=== PATIENT | male | born 1960 | race Caucasian/White ===

== ENCOUNTER → 2016-04-24 12:55 | Day surgery (SDC) | payer BC ==
[~2016-04-24 12:55] MED LIST: Buffered Lidocaine 1% SYR 3ML* 3 ML/SYR SYRINGE INTRADERM ONE; Buffered Lidocaine 1% SYR 3ML* 3 ML/SYR SYRINGE ONE; Bupivacaine 0.5% W/EPI SDV* 30 ML VIAL ONE; Dexamethasone IV* 4 MG/ML 1 ML (4 MG) IV SLOW PU ONE; Dexamethasone IV* 4 MG/ML 1 ML (4 MG) ONE; Famotidine IV* 10 MG/ML 2 ML (20 mg) IV ONE; Famotidine IV* 10 MG/ML 2 ML (20 mg) ONE; HYDROcodone/ACETAMIN 5-325 MG* 1 TAB ONE; HYDROcodone/ACETAMIN 5-325 MG* 1 TAB PO PRN; Ketorolac INJ* 30 MG/ML 1 ML VIAL IV PUSH PRN; Ketorolac INJ* 30 MG/ML 1 ML VIAL ONE; Levalbuterol 1.25MG/0.5ML NEB ONE; Lidocaine 2% MPF* 2 ML VIAL ONE; Midazolam* 1 MG/ML 2 ML VIAL (2 MG) ONE; Ondansetron INJ* 2 MG/ML VIAL IV PRN; Ondansetron INJ* 2 MG/ML VIAL ONE; PROCHLORPERAZINE INJ 5 MG/ML 2 ML VIAL IV PRN; Propofol* 10 MG/ML 20 ML BTL IV PUSH ONE; Rocuronium* 10 MG/ML VIAL ONE; ceFAZolin 2 GM PREMIX (*) 2 GM/50 ML BAG IVPB ONE; fentaNYL* 50 MCG/ML 2 ML VIAL (100 MCG VIAL) IV PRN; fentaNYL* 50 MCG/ML 2 ML VIAL (100 MCG VIAL) ONE
[2016-04-24 20:02] VITALS: BP 158/86
--- NOTE | 2016-04-26 04:03 | OP ---
OPERATIVE REPORT: DATE OF OPERATION: 04/24/16 - SDS DATE OF : 58 SURGEON: Philip Rausch MD HOUSE DECORATOR: ALIX Barrientos ANESTHESIOLOGIST: Dr. Nix. ANESTHESIA: General endotracheal. PRE-OP DIAGNOSIS: Right inguinal hernia. POST-OP DIAGNOSIS: Bilateral inguinal hernias. OPERATIVE PROCEDURE: Laparoscopic repair of bilateral inguinal hernias with mesh. ESTIMATED BLOOD LOSS: Minimal. IV FLUIDS: Crystalloids. SPECIMENS: None. DRAINS: None. COMPLICATIONS: None. COUNTS: Instrument, needle, and sponge counts were correct. DESCRIPTION OF PROCEDURE: The patient was brought to the operating room and placed on the table supine. Sequential compression devices were placed on both lower extremities. General anesthesia was administered. The abdomen was prepped and draped in the usual sterile fashion. He received appropriate intravenous antibiotics. Time-out was performed. Local anesthetic was infiltrated into the skin and soft tissue prior to making each incision. The initial incision was a curvilinear infraumbilical incision and the rectus fascia was identified to the left of midline incised transversely and then the underlying muscle fibers were retracted laterally and a preperitoneal balloon dissector was positioned down to the level of the pubic symphysis. The preperitoneal balloon dissector was insufflated under direct visualization. The balloon dissector was then removed. A 12-mm blunt port was placed and carbon dioxide was insufflated to a pressure of 10 mmHg. Under direct visualization, two 5 mm trocars were placed in the lower midline. The dissection proceeded initially on the left side. The dissection proceeded medially to laterally, identifying the pubic tubercle. The inferior epigastric vessels which were maintained anteriorly and there was noted to be a direct inguinal hernia which was fully reduced. The spermatic cord components were identified and inspection revealed no evidence of indirect hernia. The dissection proceeded out laterally to the anterior superior iliac spine. Next, the attention was turned to the right side and again the dissection proceeded medially to laterally. There was noted to be a small weakness in the direct space and there was a direct inguinal hernia as well and the spermatic cord components were dissected free from the sac, which was fully reduced. The dissection then proceeded laterally to the anterior superior iliac spine as well. Repair on each side was performed with a Bard 3DMax medium size patch. The right side was first prepared and placed in the mesh into the preperitoneal space and then positioning it to cover the direct, indirect and femoral spaces. The CapSure tacker was used to secure the mesh to the pubic tubercle to Jonh 's ligament and to the anterior abdominal wall musculature also securing the hernia sac to this point. This manner of the mesh was noted to be lying appropriately. The procedure was then repeated for the left side again covering direct, indirect, and femoral spaces. The mesh was visualized as the preperitoneal space was deflated and then the ports were removed. The infraumbilical wound was closed with 3-0 Polysorb in an interrupted fashion to approximate the fascias. The skin incisions were then closed with 4-0 Monocryl in a subcuticular fashion. Steri-Strips were applied. The patient tolerated the procedure well. He was extubated and transferred to recovery room in a stable condition. CC: Philip George MD* [id number]/CPS #: [id number]
== END | disposition home or self-care (01) ==
LOC: OR 12:55
PROVIDERS: ATTEND Surgery
DX: K40.20 Bilateral inguinal hernia, without obstruction or gangrene, not specified as recurrent (principal); Z87.891 Personal history of nicotine dependence; I10 Essential (primary) hypertension; J45.990 Exercise induced bronchospasm; N40.0 Benign prostatic hyperplasia without lower urinary tract symptoms; Z88.0 Allergy status to penicillin
CPT/HCPCS: A9270-GY; C1776; C1781; J0690; J1100; J1885; J2250; J2405; J2704; J3010

== ENCOUNTER 2016-05-03 17:16 | Emergency (ER) | payer BC ==
[2016-05-03 17:20] VITALS: BP 150/99
[2016-05-03] MEDS ORDERED: Diphth/Teta/Acell Pertusis* 0.5 ML VIAL ** FOR 6 WKS TO 7 YRS OLD IM ONE (17:42)
--- NOTE | 2016-05-03 17:49 | ED ---
Laceration/Wound HPI - HPI Summary HPI Summary: 56 M presents with right thumb laceration s/p cutting it with a stanton knife. He states he was cutting up an onion and using the knife for the first time and was unsure how it use it when he took off a piece of his right thumb. He is right handed. He does not remember when his last tetanus was. He denies any numbness or tingling and has full ROM of his finger. - History of Current Complaint Stated Complaint: RT THUMB LAC Time Seen by Provider: 05/03/16 17:23 Pain Intensity: 5 - Allergy/Home Medications Allergies/Adverse Reactions: Allergies Allergy/AdvReac Type Severity Reaction Status Date / Time Penicillins Allergy VOMITTING Verified 05/03/16 17:20 PMH/Surg Hx/FS Hx/Imm Hx Endocrine/Hematology History: Denies: Hx Diabetes, Hx Thyroid Disease Cardiovascular History: Reports: Hx Hypertension - ON MEDS Denies: Other Cardiovascular Problems/Disorders Respiratory History: Reports: Hx Asthma - WILL BRING INHALER Denies: Hx Chronic Obstructive Pulmonary Disease (COPD) GI History: Reports: Hx Gastroesophageal Reflux Disease Denies: Hx Ulcer, Other GI Disorders History: Denies: Hx Renal Disease Musculoskeletal History: Denies: Other Musculoskeletal History Sensory History: Denies: Hx Contacts or Glasses, Hx Hearing Aid Opthamlomology History: Denies: Hx Contacts or Glasses Neurological History: Denies: Other Neuro Impairments/Disorders - Surgical History Surgery Procedure, Year, and Place: NECK SURGERY-CERVICAL DISK, 1984, [facility] Hx Anesthesia Reactions: No Infectious Disease History: No Infectious Disease History: Reports: Hx Shingles - 1989 Denies: Hx Clostridium Difficile, Hx Hepatitis, Hx Human Immunodeficiency Virus (HIV), Hx of Known/Suspected MRSA, Hx Tuberculosis, Hx Known/Suspected VRE , Hx Known/Suspected VRSA, History Other Infectious Disease, Traveled Outside the in Last 30 Days - Family History Known Family History: Positive: Hypertension - Social History Alcohol Use: Occasionally Alcohol Amount: 6 PER WEEK Substance Use Type: Reports: None Smoking Status (MU): Former Smoker Amount Used/How Often: 1/2 PACK A DAY Have You Smoked in the Last Year: No Review of Systems Negative: Fever Negative: Chest Pain Negative: Shortness Of Breath Positive: Other - avulsion of right thumb All Other Systems Reviewed And Are Negative: Yes Physical Exam Triage Information Reviewed: Yes Vital Signs On Initial Exam: Initial Vitals Temp Pulse Resp BP Pulse Ox 99.7 F 78 16 150/99 97 05/03/16 17:17 05/03/16 17:17 05/03/16 17:17 05/03/16 17:17 05/03/16 17:17 Vital Signs Reviewed: Yes Appearance: Positive: Well-Appearing Skin: Positive: Warm, Dry, Other - 3cm by 2 cm avulsion of right thumb that is actively bleeding near end of nail Eyes: Positive: Normal, EOMI, Conjunctiva Clear ENT: Positive: Normal ENT inspection, Pharynx normal, TM bulging Respiratory/Lung Sounds: Positive: Clear to Auscultation, Breath Sounds Present Cardiovascular: Positive: Normal, RRR Musculoskeletal: Positive: Strength/ROM Intact - of thumb, Other - good capillary refill, good pulses Procedures - Laceration/Wound Repair 1 Location: Other - right thumb avulsion Description: Irregular Irrigated w/ Saline (ccs): 100 Laceration/Wound Explored: clean Closure: Skin Adhesive - placed hemostat on area and pressure dressing Diagnostics - Vital Signs Vital Signs Temp Pulse Resp BP Pulse Ox 05/03/16 17:17 99.7 F 78 16 150/99 97 - Laboratory Lab Statement: Any lab studies that have been ordered have been reviewed, and results considered in the medical decision making process. Laceration Repair Course/Dx - Course Course Of Treatment: 56 M presents with avulsion to right thumb from a knife, tetanus not up to date so was given, has full ROM of his finger, area cleaned and surgicel placed and pressure dressing applied and no sutureable area noted, bleeding controlled, applied heath to area, patient agrees with plan - Differential Dx Differental Diagnoses: Abrasion, Avulsion, Laceration - Clinical Impression Provider Diagnoses: Avulsion of skin of right thumb Discharge - Discharge Plan Condition: Good Disposition: HOME Patient Education Materials: Skin Avulsion (ED) Referrals: Philip George MD [Primary Care Provider] - Additional Instructions: Keep area in pressure dressing for 24 hours, after 24 hours check for sign of infection leaving absorbable hemostat on wound and rewrap with pressure dressing for another 24 hours Keep area covered after 48 hours Follow up with primary within 5 days Return to ED if develop any signs of infection such as fever, spreading redness , or pus formation or if bleed through pressure dressing or any new or worsening symptoms
== END 2016-05-03 18:48 | disposition home or self-care (01) ==
LOC: ED 17:16
DX: S61.011A Laceration without foreign body of right thumb without damage to nail, initial encounter (principal); W26.0XXA Contact with knife, initial encounter; Y93.9 Activity, unspecified; Y92.9 Unspecified place or not applicable; Y99.9 Unspecified external cause status; Z87.891 Personal history of nicotine dependence
CPT/HCPCS: 96372; 99282

== ENCOUNTER 2016-07-20 17:22 | Emergency (ER) | payer BC ==
[2016-07-20 18:33] VITALS: BP 144/80
--- NOTE | 2016-07-20 18:58 | UC ---
Skin Complaint HPI - HPI Summary HPI Summary: tender red area on anterior right morton for 1 day - History of Current Complaint Chief Complaint: UCLowerExtremity Time Seen by Provider: 07/20/16 18:48 Stated Complaint: LOWER LEG PAIN-RED/WARM Hx Obtained From: Patient Onset/Duration: Sudden Onset, Lasting Days - 1, Still Present Timing: Constant Onset Severity: Mild Current Severity: Mild Location: Discrete Character: Pain, Redness Aggravating: Clothing Alleviating: Nothing Associated Signs & Symptoms: Positive: Negative - Allergy/Home Medications Allergies/Adverse Reactions: Allergies Allergy/AdvReac Type Severity Reaction Status Date / Time Penicillins Allergy VOMITTING Verified 07/20/16 18:32 Review of Systems Constitutional: Negative Skin: Rash - anterior left morton Eyes: Negative ENT: Negative Respiratory: Negative Cardiovascular: Negative Gastrointestinal: Negative Genitourinary: Negative Motor: Negative Neurovascular: Negative Musculoskeletal: Negative Neurological: Negative Psychological: Negative All Other Systems Reviewed And Are Negative: Yes PMH/Surg Hx/FS Hx/Imm Hx Previously Healthy: No Endocrine History Of: Denies: Diabetes, Thyroid Disease Cardiovascular History Of: Reports: Hypertension - ON MEDS Denies: Cardiac Disorders Respiratory History Of: Reports: Asthma - WILL BRING INHALER, Bronchitis - BRONCHITIS X3 THIS PAST WINTER([id number]) Denies: COPD GI/ History Of: Denies: Ulcer, Renal Disease - Surgical History Surgical History: Yes Surgery Procedure, Year, and Place: NECK SURGERY-CERVICAL DISK, 1984, [facility]. HERNIA REPAIR 04/2016 - Family History Known Family History: Positive: Hypertension - Social History Occupation: Employed Full-time Lives: With Family Alcohol Use: Occasionally Alcohol Amount: 6 PER WEEK Substance Use Type: None Smoking Status (MU): Former Smoker Amount Used/How Often: 1/2 PACK A DAY Have You Smoked in the Last Year: No When Did the Patient Quit Smoking/Using Tobacco: 2003 Physical Exam Triage Information Reviewed: Yes Appearance: Well-Appearing, No Pain Distress, Well-Nourished Vital Signs: Initial Vital Signs Temp 98.7 F 07/20/16 18:27 Pulse 62 07/20/16 18:27 Resp 16 07/20/16 18:27 BP 144/80 07/20/16 18:27 Pulse Ox 97 07/20/16 18:27 Vital Signs Reviewed: Yes Eye Exam: Normal Eyes: Positive: Conjunctiva Clear ENT Exam: Normal ENT: Positive: Normal ENT inspection, Hearing grossly normal. Negative: Trismus , Muffled/hoarse voice Dental Exam: Normal Neck exam: Normal Neck: Positive: Supple, Nontender Respiratory Exam: Normal Respiratory: Positive: Chest non-tender, Lungs clear, Normal breath sounds, No respiratory distress, No accessory muscle use Cardiovascular Exam: Normal Cardiovascular: Positive: RRR, No Murmur, Pulses Normal, Brisk Capillary Refill Musculoskeletal Exam: Normal Musculoskeletal: Positive: Strength Intact, ROM Intact, No Edema Neurological Exam: Normal Neurological: Positive: Alert Psychological Exam: Normal Skin Exam: Normal Course/Dx - Course Course Of Treatment: warm compress, bactrim follow with pcp 3-4 days - Differential Diagnoses - Skin Complaint Differential Diagnoses: Cellulitis, Eczema, Local Allergic Reaction - Diagnoses Provider Diagnoses: cellulitis left anterior morton Discharge - Discharge Plan Condition: Stable Disposition: HOME Prescriptions: Sulfamethox/Trimethoprim DS* [Bactrim DS 800/160 TAB*] 1 tab PO BID #14 tab Patient Education Materials: Cellulitis (ED), DASH Eating Plan (ED), Hypertension (ED), Heat Pack Application (ED) Referrals: Philip George MD [Primary Care Provider] - 4 Days (4)
== END 2016-07-20 19:05 | disposition home or self-care (01) ==
LOC: UCEAST 17:22
DX: L03.116 Cellulitis of left lower limb (principal); I10 Essential (primary) hypertension; J45.909 Unspecified asthma, uncomplicated; Z88.0 Allergy status to penicillin; Z87.09 Personal history of other diseases of the respiratory system; Z87.891 Personal history of nicotine dependence
CPT/HCPCS: 99212; G0463